=== PATIENT | male | born 1955 | race African-American/Black ===

== ENCOUNTER 2022-12-06 14:27 | Emergency (ER) | payer MEDICARE, OTHER ==
[~2022-12-06] VITALS: Ht 193 cm; Wt 90.0 kg
[2022-12-06 14:33] VITALS: O2SAT 100
[2022-12-06] MEDS ORDERED: ACETAMINOPHEN 500MG TABLET PO STA (15:35)
[2022-12-06] MEDS ORDERED: ACETAMINOPHEN 500MG TABLET PO NR (18:00)
[2022-12-06] MEDS ORDERED: LOSA50TA41 PO (21:31)
[2022-12-06] MEDS ORDERED: ACET-2708 PO (21:31)
[2022-12-06] MEDS ORDERED: ASPI-1497 PO (21:31)
[2022-12-06] MEDS ORDERED: LABE100T9 PO (21:31)
[2022-12-06] MEDS ORDERED: GLIP5TAB12 PO (21:31)
[2022-12-06] MEDS ORDERED: ATOR10TA69 PO (21:31)
[2022-12-06] MEDS ORDERED: AMLO10TA80 PO (21:31)
[2022-12-06] MEDS ORDERED: HYDR25TA PO (21:31)
[2022-12-06] MEDS ORDERED: INSU100I24 SUBCUT (21:31)
[2022-12-06] MEDS ORDERED: AMOX1TAB16 MT (23:50)
[2022-12-07 00:06] VITALS: BP 146/68; PULSE 82; RESP 20; TEMP 98.2
== END 2022-12-07 00:09 | disposition home or self-care (01) ==
LOC: ER 14:27
DX: S09.90XA Unspecified injury of head, initial encounter (principal); I11.0 Hypertensive heart disease with heart failure; I50.9 Heart failure, unspecified; J44.9 Chronic obstructive pulmonary disease, unspecified; E78.00 Pure hypercholesterolemia, unspecified; E11.9 Type 2 diabetes mellitus without complications; W18.39XA Other fall on same level, initial encounter; Y93.89 Activity, other specified; Y92.89 Other specified places as the place of occurrence of the external cause; Y99.8 Other external cause status
CPT/HCPCS: 71045; 72170; 73560; 73590; 99284